=== PATIENT | female | born 1935 | race Asian ===

== ENCOUNTER 2020-12-26 19:19 | Emergency (ER) | payer OTHER ==
[~2020-12-26] VITALS: Ht 149.9 cm; Wt 59.0 kg
[2020-12-26 19:29] VITALS: Ht 149.9 cm; Wt 59.0 kg
[2020-12-26 20:39] LABS: ALBUMIN 3.6 g/dL (3.4-5.0); ALKALINE PHOSPHATASE 105 U/L (46-116); ALT/SGPT 31 U/L (14-59); AST/SGOT 26 U/L (15-37); BILIRUBIN TOTAL 0.5 mg/dL (0.20-1.00); CALCIUM 8.7 mg/dL (8.5-10.1); CARBON DIOXIDE 27.4 mmol/L (21-32); CHLORIDE SERUM 102 mmol/L (98-107); CHOLESTEROL 177 mg/dL (<200); CREATININE SERUM 0.9 mg/dL (0.6-1.0); GLUCOSE SERUM 110 mg/dL (74-106); HDL CHOLESTEROL 52 mg/dL (40-60); MAGNESIUM 2.1 mg/dL (1.8-2.4); PHOSPHOROUS 2.7 mg/dL (2.5-4.9); POTASSIUM SERUM 4.5 mmol/L (3.5-5.1); SODIUM SERUM 138 mmol/L (136-145); TOTAL PROTEIN, SERUM 7.2 g/dL (6.4-8.2)
[2020-12-26 20:44] LABS: BASOPHIL % 0.3 % (0.2-1.3); PLATELET COUNT 174 x10^3mcL (179-408); RED CELL DISTRIBUTION WIDTH 13.6 % (12.3-17.7)
[2020-12-26 23:52] VITALS: BP 116/55
== END 2020-12-27 00:20 | disposition short-term general hospital (02) ==
LOC: ED 19:19
PROVIDERS: Emergency Medicine
DX: I62.01 Nontraumatic acute subdural hemorrhage (principal); I60.9 Nontraumatic subarachnoid hemorrhage, unspecified; S32.591D Other specified fracture of right pubis, subsequent encounter for fracture with routine healing; I10 Essential (primary) hypertension; M19.90 Unspecified osteoarthritis, unspecified site; Z88.8 Allergy status to other drugs, medicaments and biological substances; Z20.822 Contact with and (suspected) exposure to COVID-19; X58.XXXD Exposure to other specified factors, subsequent encounter
CPT/HCPCS: J1953; J2405; J3010; U0003